=== PATIENT | male | born 1980 | race Hispanic/Latino ===

== ENCOUNTER 2023-11-17 00:20 | Emergency (ER) | payer SELFPAY ==
[2023-11-17 01:43] LABS: ALT (SGPT) 95 U/L (8-55); AST (SGOT) 62 U/L (5-34); Albumin 3.9 g/dL (3.5-5.0); Alkaline Phosphatase 57 U/L (40-110); Anion Gap 18 mmol/L (10-20); BUN (Urea Nitrogen) 16 mg/dL (8.9-20.6); Bilirubin, Total 0.6 mg/dL (0.2-1.2); Calc. Creatinine Clearance 0 mL/min (70-130); Calcium 8.9 mg/dL (7.8-10.44); Carbon Dioxide 17 mmol/L (22-29); Chloride 106 mmol/L (98-107); Estimated GFR 91; Globulin 4.4 g/dL (2.4-3.5); Glucose 121 mg/dL (70-105); Lipase 27 U/L (8-78); Magnesium 1.8 mg/dL (1.6-2.6); Potassium 3.4 mmol/L (3.5-5.1); Protein, Total 8.3 g/dL (6.0-8.3); Sodium 138 mmol/L (136-145)
[2023-11-17 01:48] LABS: Troponin I Less than 0.010 ng/mL (< 0.028)
[2023-11-17] MEDS ORDERED: Potassium Chloride 20 MEQ TAB ONE (01:54)
[2023-11-17 02:01] LABS: #Basophils Less than 0.03 10x3/uL (0.0-0.2); %Basophils 0.4 % (0.0-1.0); %Eosinophils 1.8 % (0.0-10.0); %Lymphocytes 37.6 % (21.0-51.0); %Monocytes 12.7 % (0.0-10.0); %Neutrophils 47.1 % (42.0-75.0); Hematocrit 36.1 % (42.0-52.0); Hemoglobin 13.5 g/dL (14.0-18.0); Mean Corpuscular HGB CONC 37.4 g/dL (32.0-36.0); Mean Corpuscular Hemoglobin 32.4 pg (27.0-31.0); Mean Corpuscular Volume 86.6 fL (78.0-98.0); Mean Platelet Volume 11.1 fL (7.4-10.4); Platelet Count 171 10x3/uL (130-400); RBC Distribution Width 12.6 % (11.5-14.5); Red Blood Cell (RBC) Count 4.17 mill/uL (4.70-6.10)
== END 2023-11-17 02:26 | disposition home or self-care (01) ==
LOC: ERS 00:20
DX: I49.1 Atrial premature depolarization (principal); E87.6 Hypokalemia; R00.2 Palpitations; I10 Essential (primary) hypertension
CPT/HCPCS: 36415; 71045; 80053; 83690; 83735; 83880; 84484; 85025; 93005